=== PATIENT | female | born 1965 | race African-American/Black ===

== ENCOUNTER 2023-04-20 11:28 | Emergency (ER) | payer MEDICARE, SELFPAY ==
[2023-04-20 11:29] VITALS: BP 159/110; PULSE 80; RESP 16; TEMP 36.7; O2SAT 97; BMI 26.4
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
[2023-04-20] MEDS: hydrOXYzine PAM 25 MG Capsule 50 MG PO (12:07)
[2023-04-20 12:08] VITALS: BP 152/90; PULSE 80; RESP 18; TEMP 36.6; O2SAT 99
== END 2023-04-20 12:21 | disposition home or self-care (01) ==
PROVIDERS: Emergency Provider Emergency Medicine; Visit Provider Emergency Medicine
DX: F41.9 Anxiety disorder, unspecified (principal); Z59.00 Homelessness unspecified; F17.210 Nicotine dependence, cigarettes, uncomplicated
CPT/HCPCS: 99282